=== PATIENT | female | born 1970 ===

== ENCOUNTER 2017-10-25 14:57 | Outpatient (CLI) | payer OTHER | END 2017-10-25 15:06 | disposition home or self-care (01) | LOC: MAMO-SONO 14:57 | DX: Z12.31 Encounter for screening mammogram for malignant neoplasm of breast (principal); N63.10 Unspecified lump in the right breast, unspecified quadrant; N63.20 Unspecified lump in the left breast, unspecified quadrant; N60.11 Diffuse cystic mastopathy of right breast; N64.4 Mastodynia ==

== ENCOUNTER 2017-10-30 10:24 | Outpatient (CLI) | payer OTHER | END 2017-10-30 10:36 | disposition home or self-care (01) | LOC: LAB 10:24 | DX: E03.8 Other specified hypothyroidism (principal); D63.8 Anemia in other chronic diseases classified elsewhere; N30.90 Cystitis, unspecified without hematuria; E78.00 Pure hypercholesterolemia, unspecified; K92.1 Melena; M81.0 Age-related osteoporosis without current pathological fracture ==

== ENCOUNTER 2018-04-03 16:18 | Outpatient (CLI) | payer OTHER | END 2018-04-03 16:32 | disposition home or self-care (01) | LOC: RAD 16:18 | DX: M54.5 Low back pain (principal) ==

== ENCOUNTER 2018-09-13 13:12 | Outpatient (CLI) | payer OTHER | END 2018-09-13 13:24 | disposition home or self-care (01) | LOC: MRI 13:12 | DX: M46.47 Discitis, unspecified, lumbosacral region (principal) | CPT/HCPCS: 72148 ==

== ENCOUNTER 2020-10-19 14:07 | Outpatient (CLI) | payer OTHER | END 2020-10-19 14:15 | disposition home or self-care (01) | LOC: MAMO-SONO 14:07 | PROVIDERS: ATTEND Obstetrics & Gynecology Maternal & Fetal Medicine | DX: N63 Unspecified lump in breast (principal); Z12.31 Encounter for screening mammogram for malignant neoplasm of breast; N64.4 Mastodynia; N60.11 Diffuse cystic mastopathy of right breast ==

== ENCOUNTER 2022-02-13 09:34 | Outpatient (CLI) | payer OTHER | END 2022-02-13 09:49 | disposition home or self-care (01) | LOC: MAMO-SONO 09:34 | PROVIDERS: ATTEND Obstetrics & Gynecology Maternal & Fetal Medicine | DX: N63 Unspecified lump in breast (principal); Z12.31 Encounter for screening mammogram for malignant neoplasm of breast; N64.4 Mastodynia; N60.11 Diffuse cystic mastopathy of right breast ==